=== PATIENT | male | born 1975 | race Caucasian/White ===

== ENCOUNTER 2020-07-04 10:35 | Emergency (ER) | payer BC | END 2020-07-04 12:09 | disposition short-term general hospital (02) | LOC: BURERS 10:35 | DX: S14.109A Unspecified injury at unspecified level of cervical spinal cord, initial encounter (principal); S00.81XA Abrasion of other part of head, initial encounter; S00.511A Abrasion of lip, initial encounter; I10 Essential (primary) hypertension; F17.210 Nicotine dependence, cigarettes, uncomplicated; Y93.72 Activity, wrestling | CPT/HCPCS: 72125 ==